=== PATIENT | female | born 1965 | race Caucasian/White ===

== ENCOUNTER → 2019-12-02 15:30 | Outpatient (BNVA) | payer BC, SELFPAY | PROVIDERS: Family Provider Family Medicine; Visit Provider Obstetrics & Gynecology | DX: R92.8 Other abnormal and inconclusive findings on diagnostic imaging of breast (principal); Z87.898 Personal history of other specified conditions; Z12.4 Encounter for screening for malignant neoplasm of cervix; A60.00 Herpesviral infection of urogenital system, unspecified; Z01.411 Encounter for gynecological examination (general) (routine) with abnormal findings; A60.04 Herpesviral vulvovaginitis | CPT/HCPCS: 88175 ==

== ENCOUNTER → 2021-06-05 11:09 | Outpatient (BNVA) | payer BC, SELFPAY | PROVIDERS: Family Provider Family Medicine; Visit Provider Obstetrics & Gynecology | DX: E03.9 Hypothyroidism, unspecified (principal); R39.9 Unspecified symptoms and signs involving the genitourinary system | CPT/HCPCS: 84443; 87086 ==